=== PATIENT | female | born 1985 | race Caucasian/White ===

== ENCOUNTER → 2023-12-31 09:55 | Outpatient (BNVA) | payer MEDICAID, SELFPAY | PROVIDERS: Visit Provider Physician Assistant Surgical ==

== ENCOUNTER 2024-03-02 07:59 | Outpatient (AMB) | payer MEDICAID, SELFPAY ==
--- NOTE | 2024-03-02 14:16 | A.OFFVIS_ITS ---
VS Expanded 03/02/24 14:21 Height 5 ft 5 in Weight 263 lb BMI 43.8 Body Fat % 47.4 Body Fat Mass 124.6 Fat Free Mass 138.2 Visceral Fat Rating 14 Body Water % 37.7 Body Water Mass 99 Basal Metabolic Rate/Score 1,977 Intake Visit Reasons: [employer] SWL BMI 43.8 Allergies cat dander Adverse Reaction (Mild, Verified 03/02/24 14:16) Sneezing Medication List - Last Reconciled 03/02/24 by Forrest Luke MD No Known Home Meds HPI HPI [employer] SWL BMI 43.8: Details: Start time: 2pm, End time: 2.53pm ?I spent 48 minutes speaking with the patient on the phone plus an additional 5 minutes reviewing and updating records for a total of 53 minutes HPI Comments Details: Previous weight loss efforts: self diets Wakes up: 6am, Sleeps: 10pm Breakfast: 9am (fruit and sandwich) Lunch: 12pm (pasta, sandwich) Dinner: 5-6pm (rice, chicken, beans) Snacks: 4pm (chips or cookies), 8pm (crackers, cereal) Exercise: none Fluids: Coffee/tea: none, soda: regular Coke (2 cups per day), juice: 1/wk, ETOH: rarely PFSH Medical History (Updated 03/02/24 @ 14:17 by Forrest Luke MD) Morbid obesity Surgical History (Updated 12/31/23 @ 11:52 by Jerilyn Carrillo CMA) Hx of removal of cyst Family History (Updated 12/31/23 @ 10:33 by Jerilyn Carrillo CMA) Family/Other No problems noted. Social History (Updated 12/31/23 @ 10:32 by Jerilyn Carrillo CMA) Alcohol intake: current Alcohol intake frequency: holidays/special occasions only Alcohol type: beer Patient Tobacco Use Status: Never used Tobacco Telehealth Telehealth Telehealth Platform: Telephone Location of provider rendering services: practice address Location of patient: address on file Patient Identification confirmed using: Name, : Yes Telehealth method: voice only Patient verbally consented to treatment: Yes Patient verbally consented to billing insurance company: Yes Patient informed of any privacy concerns related to visit: Yes Minutes spent on Phone/Video with Pt.: 53 Assessment & Plan Assessment & Plan (1) Morbid obesity: Code(s): E66.01 - Morbid (severe) obesity due to excess calories Category: Medical Plan: 1.? Plan for lap sleeve gastrectomy. If diaphragmatic or ventral hernias are present at time of surgery, these will be repaired laparoscopically as well. Risks and complications include possible conversion to an open procedure, anastomotic leak, bleeding requiring transfusion, small bowel obstruction, , DVT and pulmonary embolism, cardiac, or pulmonary complications, as supervisor intermediates complications such as anastomotic ulcer, insufficient weight loss and vitamin deficiencies. I emphasized the importance of close follow-up, adherence to instructions and good communication. 2. Nutritional counseling. Start with 2 CELEBRATE REBUILD protein (buy at [facility] gift shop) shakes (ONE scoop EACH in 8oz low fat unsweetened almond milk each) at 7am-9am and 10am-12pm, 2 protein bars (CELEBRATE protein bars, buy at [facility] [employer] shop) at 1pm-3pm and 4pm-6pm, dinner at 7pm (10 forks of protein and 10 forks of salad/vegetables) AND HALF protein bar after dinner at 9pm-10pm. So you do 2 protein shakes, 2.5 protein bars and one meal per day. Meal to include lean meat (beef, fish, pork, turkey, chicken), or luxembourgish yogurt, or egg whites, or beans with a salad with olive oil and fruits (berries, pears, apples, kiwi). Avoid salt, breads, potatoes, rice, pasta, desserts. 3. Each shake would be drunk slowly, like coffee in a period of 2 hours. 4. Cut each bar in 4 pieces and eat each piece in 30min ?to make each bar last 2 hours. 5. I emphasized the importance of measuring accurately the food portion and measure it when serving the food in plate 6. The meal portions include 10 full-size forks of meat and 10 full-size forks of salad. You always eat the meat portion but you can replace up to 5 forks for salad/vegetables with rice, potatoes or pasta, or a fruit ?if you like. The less you do it the better weight loss will be. 7. One full-size fork is what it can be scooped on the fork without falling aside and not what can be bit with the fork. Use regular forks like those you find in a typical restaurant. 8.? Please buy the body composition scale we discussed and send me weight measurements as soon as possible and then once a week. Always include your diet and exercise plan. 9. Start walking outside daily, tracking calories with a goal of 300 calories per day, daily. Goal is to burn 2000 calories per week on exercise, which means either 300 calories daily, or 400 calories 5 days per week, or 500 calories 4 days per week, or 650 calories 3 days per week. 10. The best choice would be to purchase a stationary bike, elliptical or treadmill at home that can track calories. Let me know if you do so I can give you an exercise plan. 11.?It is important of avoiding and for at least 18 months postoperatively and has been discussed at the infosession. 12. Goal is to lose at least 1.5-2lbs per week 13. Goal to lose 10% of your weight before surgery, which is about 26lbs. Ultimate weight goal: 217lbs before surgery 14. Please follow the diet plan exactly without any change. If you don't like something about the plan or you feel hungry you need to communicate with me so I can help you revise the plan. You should not change the plan yourself. 15. To be scheduled for EGD due to the history of sleeve gastrectomy and anemia. The possibility of biopsies was discussed. Patient needs to avoid use of NSAIDs and aspirin for 1 week prior to EGD. You must be on liquids only the day before your endoscopy. Risks of perforation and bleeding was discussed with the patient. This will be an outpatient procedure with IV sedation. Orders: Orders Hemoglobin A1c Today E66.01 - Morbid (severe) obesity due to excess calories Complete Blood Count Auto Diff Today E66.01 - Morbid (severe) obesity due to excess calories Lipid Panel Today E66.01 - Morbid (severe) obesity due to excess calories IRON PROFILE Today E66.01 - Morbid (severe) obesity due to excess calories Comprehensive Met. Panel Today E66.01 - Morbid (severe) obesity due to excess calories Vitamin B12 and Folate Today E66.01 - Morbid (severe) obesity due to excess calories Zinc Today E66.01 - Morbid (severe) obesity due to excess calories Vitamin B1 Today E66.01 - Morbid (severe) obesity due to excess calories US abdomen comp w elastography Today E66.01 - Morbid (severe) obesity due to excess calories XR chest 2V Today E66.01 - Morbid (severe) obesity due to excess calories Insulin Today E66.01 - Morbid (severe) obesity due to excess calories H Pylori Breath Test Today E66.01 - Morbid (severe) obesity due to excess calories C Reactive Protein Today E66.01 - Morbid (severe) obesity due to excess calories Vitamin A Today E66.01 - Morbid (severe) obesity due to excess calories TSH reflex Free T4 Today E66.01 - Morbid (severe) obesity due to excess calories Ferritin Today E66.01 - Morbid (severe) obesity due to excess calories Vitamin D 25-OH Total Today E66.01 - Morbid (severe) obesity due to excess ca lories ECG 12 lead EKG Today E66.01 - Morbid (severe) obesity due to excess calories FL upper GI w air Today E66.01 - Morbid (severe) obesity due to excess calories Referrals Behavioral Health Referral E66.01 - Morbid (severe) obesity due to excess calories Nutrition/Dietitian Referral E66.01 - Morbid (severe) obesity due to excess calories
[2024-03-02 14:21] VITALS: BMI 43.8
== END 2024-03-02 14:53 | disposition home or self-care (01) ==
LOC: HO.HBS 07:59
PROVIDERS: PCP Internal Medicine; Visit Provider Surgery
DX: E66.01 Morbid (severe) obesity due to excess calories (principal); E66.813 Obesity, class 3; Z68.41 Body mass index [BMI] 40.0-44.9, adult
CPT/HCPCS: 99204

== ENCOUNTER 2024-10-24 10:33 | Emergency (ER) | payer MEDICAID, SELFPAY ==
[2024-10-24 10:40] VITALS: BP 148/90; PULSE 94; RESP 18; TEMP 36.6; O2SAT 98; BMI 45.4
--- OUTSIDE RECORDS SUMMARY | 2024-10-24 10:50 | XMS_ITS | Encounter Summary ---
Author Organization [employer] Address [address] [facility] [address] [facility] [address] [place] [address] Care Team Providers Care Jammer Hooker Name Role Phone Unavailable Primary Care Provider Unavailabl e Encounter Details Date Type Department Care Team (Latest Contact Info) Description 10/24/2024 Travel Social History Tobacco Use Types Packs/Day Years Used Date Smoking Tobacco: Never Passive Smoke Exposure: Never Smokeless Tobacco: Never Housing Stability Answer Date Recorded What is your housing situation today? I have julian catalna 05/12/[address] you li ve. Do you have problems with any of the following? None of the above 05/12/2024 Food Insecurity Answer Date Recorded Within the past 12 months, y ou worried that your food would run out before you got money to buy more: Never True 05/12/2024 Within the past 12 months,th e food you bought just didn't last and you didn't have enough money to get more: Never True 01/2025 Transportation Answer Date Recorded In the past 12 months, has l ack of transportation kept you from medical appts, meetings, work or from getting things needed for daily living? No 05/12/2024 Utilities Answer Date Recorded In the past 12 months, has t he electric, gas, oil or water company threatened to shut off services in your home? No 05/12/2024 Internet Access Answer Date Recorded Internet Access Q1 Yes 05/12/2024 Internet Access Q2 Not on file 05/12/2024 Comments Unknown Sex and Gender Information Value Date Recorded Sex Assigned at Female 03/29/2022 2:19 PM EST Legal Sex Female 2:15 PM EST Gender Identity Female 03/29/2022 2:19 PM EST Sexual Orientation Don't know 03/29/2022 2: 19 PM EST documented as of this encounter Plan of Treatment Upcoming Encounters Date Type Department Care Team (Late st Contact Info) Description 11/09/2024 11:30 AM EDT Clinical Support [facility] MEDICINE [address] [place] [id number] documented as of this encounter Visit Diagnoses Not on filedocumented in this encounter
--- NOTE | 2024-10-24 11:01 | ED_ITS ---
HPI - Female Genitourinary General Chief complaint: Urogenital-Female Stated complaint: bloodwork Time Seen by Provider: 10/24/24 10:48 Source: patient Mode of arrival: ambulatory Limitations: no limitations History of Present Illness ED Provider: Dr. Enrique Rhodes HPI Narrative: 39-year-old female past medical history of -1 miscarriage bilateral tubal ligation, asthma who presents emergency department for evaluation of late menstrual period, lower abdominal cramping and back pain, faintly positive home test. Patient's last menstrual period was 09/20/2024 (possibly 4 weeks 6 days ). She states she did 2 home pregnancies tests on 10/23 and 10/24 and had a faintly positive test. Patient was seen at [facility] had a negative test. Patient states she is having lower abdominal cramping radiating to her back which is consistent with her usual menstrual cramps. She had did note urinary frequency but no dysuria. She has had no vaginal bleeding. Related Data Home Medications ?Medication ?Instructions ?Recorded ?Confirmed No Known Home Meds 12/31/23 03/02/24 Allergies Allergy/AdvReac Type Severity Reaction Status Date / Time cat dander AdvReac Mild Sneezing Verified 10/24/24 10:42 Review of Systems 2 Review of Systems: Yes all other systems are reviewed and are negative PMFSH Past Medical History Medical History (Updated 10/24/24 @ 12:07 by Enrique Rhodes MD) Morbid obesity Surgical History (Updated 12/31/23 @ 11:52 by Jerilyn Carrillo CMA) Hx of removal of cyst Family History Family History (Updated 12/31/23 @ 10:33 by Jerilyn Carrillo CMA) Family/Other No problems noted. Social History Social History (Updated 12/31/23 @ 10:32 by Jerilyn Carrillo CMA) Alcohol intake: current Alcohol intake frequency: holidays/special occasions only Alcohol type: beer Patient Tobacco Use Status: Never used Tobacco Advance Directives: No Advance Directives Information Provided: No Physical Exam 2 Vital Signs: Vital Signs: Last Vital Signs Temp 97.9 F 10/24/24 10:40 Pulse 94 10/24/24 10:40 Resp 18 10/24/24 10:40 BP 148/90 H 10/24/24 10:40 Pulse Ox 98 07/26/25 10:40 O2 Del Method Room Air 10/24/24 10:40 BMI result Body Mass Index 45.4 Vital signs revealed an elevated blood pressure of 148/90 otherwise unremarkable Exam: General: Awake, alert in no distress Head: Normocephalic, atraumatic EENT: PERRL, Lids normal, sclera normal, conjunctiva normal, nose normal , ears normal, throat without erythema or exudates Neck: Supple, no adenopathy Lung: breath sounds symmetric, no wheezing, rales or rhonchi Chest: symmetric movement, nontender Heart: regular rate and rhythm, normal S1, S2 no murmurs or rubs Abdomen: soft, non-tender, nondistended, normal bowel sounds Back: no vertebral tenderness, no CVAT Extremities: no deformities, moves all extremities symmetrically Neuro: Awake, alert, oriented, normal speech, cranial nerves intact, moves all extremities symmetrically Psych: Pleasant, cooperative Medical Decision Making Medical Decision Making MDM Narrative: 39-year-old female past medical history of -1 miscarriage bilateral tubal ligation, asthma who presents emergency department for evaluation of late menstrual period, lower abdominal cramping and back pain, faintly positive home test. Patient's last menstrual period was 09/20/2024 (possibly 4 weeks 6 days ). She states she did 2 home pregnancies tests on 10/23 and 10/24 and had a faintly positive test. Patient was seen at [facility] had a negative test. Patient states she is having lower abdominal cramping radiating to her back which is consistent with her usual menstrual cramps. She had did note urinary frequency but no dysuria. She has had no vaginal bleeding. Vital signs revealed an elevated blood pressure otherwise unremarkable. Physical examination was normal Differential diagnosis: ?Includes but is not limited to , ectopic , false positive , anemia, electrolyte abnormalities, urinary tract infection Course: 12:09 My independent interpretation patient's laboratory evaluation is as follows: CBC was normal. CMP was normal. Blood type B positive. Quantitative beta-hCG was below detectable limits. I did discuss the negative test with the patient, this confirms that she is not she does not have an ectopic . I told her that is some women can sometimes have a small amount of beta-hCG in the blood in his can lead to faintly positive tests. I told her that she may have false positive home tests in the future if she thinks she is she should follow up with her PCP for a serum quantitative beta-hCG or return to the emergency department for evaluation. Admission/Observation Consideration of admission/observation: Escalation of care including admission/observation considered (Yes) Lab Data MDM Lab Attestation statement: I reviewed the patient's lab results. 10/24/24 11:13 10/24/24 11:13 Labs: Lab Results 10/24/24 10/24/24 Range/Units 11:13 11:35 WBC 10.7 (4.8-10.8) X10*3/uL RBC 5.00 (4.20-5.50) X10*6/uL Hgb 14.2 (12.0-16.0) g/dl Hct 42.2 (37.0-47.0) % MCV 84.4 (80.0-98.0) fL MCH 28.4 (27.0-33.0) pg MCHC 33.6 (31.0-35.0) g/dl RDW 13.3 (11.0-16.0) % Plt Count 386 (160-400) X10*3/uL MPV 8.5 L (9.4-12.3) fL Immature Gran % (Auto) 0.2 (0.0-0.4) % Neut % (Auto) 60.4 (45-73) % Lymph % (Auto) 31.1 (20-40) % [place] % (Auto) 5.6 (2-11) % Eos % (Auto) 1.9 (0-4) % Baso % (Auto) 0.8 (0-2) % Lymph # (Auto) 3.3 (1.2-4.9) X10*3/uL [place] # (Auto) 0.6 (0.1-1.2) X10*3/uL Eos # (Auto) 0.2 (0.0-0.4) X10*3/uL Baso # (Auto) 0.1 (0.0-0.2) X10*3/uL Abs Immat Gran (auto) 0.02 (0.00-0.03) X10*3/uL Absolute Neuts (auto) 6.4 (2.0-8.3) x10*3/uL Absolute Nucleated RBC 0.000 (0.0-0.012) X10*3/uL Nucleated RBC % (auto) 0.0 (0.0-0.2) /100WBC Sodium 141 (135-145) mmol/L Potassium 4.0 (3.3-5.1) mmol/L Chloride 107 (96-108) mmol/L Carbon Dioxide 26 (22-29) mmol/L Anion Gap 12 (12-20) BUN 14 (9-16) mg/dL Creatinine 0.79 (0.5-1.4) mg/dL Estim Creat Clear Calc 127.5 Estimated GFR > 60 Random Glucose 98 (60-115) mg/dL Calcium 9.0 (8.4-10.2) mg/dL Total Bilirubin 0.4 (0.0-1.0) mg/dL AST 24 (5-31) U/L ALT 34 H (0-31) U/L Alkaline Phosphatase 72 (39-117) U/L Total Protein 8.1 H (6.5-8.0) g/dL Albumin 4.5 (3.5-5.0) g/dL Beta HCG, Quant < 2 mIU/mL Urine Color Yellow Urine Appearance Clear Urine pH 6.0 (5.0-9.0) Ur Specific [place] >= 1.030 H (1.005-1.025) Urine Protein Trace (Neg-Trace) mg/dL Urine Glucose (UA) Negative (Negative) mg/dL Urine Ketones Negative (Negative) mg/dL Urine Blood Negative (Negative) Urine Nitrite Negative (Negative) Ur Leukocyte Esterase Small (1+) H (Negative) Urine RBC 0-2 (0-2) /HPF Urine WBC 0-5 (0-5) /HPF Ur Squamous Epith Cells 6-10 (0-2) /HPF Urine Bacteria 1+ (None Seen) Hyaline Casts 0-2 (0-2) /LPF Blood Type B Positive Chronic Conditions Patient?s care impacted by: Other (Asthma) Discharge Plan Discharge Clinical Impression: test negative, Menstrual cramp Patient Disposition: Home, Self-Care Additional Instructions: Your quantitative beta-hCG (blood test) was negative. This has a very sensitive test in confirms that you are not . Sometimes women can have a low amount of beta-hCG in your blood and this can lead to faintly positive tests and this may explain why your test was faintly positive but at this time you are not based your test here in the emergency department. Your cramping and back pain is consistent with the your menses. Sometimes when your menstrual period is delayed you can have a more severe with more bleeding and more cramping. Take ibuprofen 200 mg pills, 2 pills every 6 hours as needed for pain or fever. Take Tylenol (acetaminophen) 500 mg pills, 2 pills every 6 hours as needed for pain or fever. Follow-up with your doctor in 2 days. Please return to the emergency department if your symptoms get worse or if you develop any symptoms that are concerning to you. Prescriptions: No Action No Known Home Meds Print Language: Kuwaiti
[2024-10-24 11:19] LABS: MANUAL DIFF FLAG NO
[2024-10-24 11:32] LABS: Hematocrit 42.2 % (37.0-47.0); Hemoglobin 14.2 g/dl (12.0-16.0); Imm Gran Abs Auto 0.02 X10*3/uL (0.00-0.03); Imm Gran Pct Auto 0.2 % (0.0-0.4); Lymphocytes Absolute Auto 3.3 X10*3/uL (1.2-4.9); Mean Corpuscular HGB Conc 33.6 g/dl (31.0-35.0); Mean Corpuscular Hemoglobin 28.4 pg (27.0-33.0); Mean Corpuscular Volume 84.4 fL (80.0-98.0); NRBC Abs Auto 0.000 X10*3/uL (0.0-0.012); NRBC Pct Auto 0.0 /100WBC (0.0-0.2); Platelet Count 386 X10*3/uL (160-400); Red Blood Count 5.00 X10*6/uL (4.20-5.50); White Blood Count 10.7 X10*3/uL (4.8-10.8)
[2024-10-24 11:41] LABS: Alanine Aminotransferase 34 U/L (0-31); Albumin Level 4.5 g/dL (3.5-5.0); Alkaline Phosphatase 72 U/L (39-117); Anion Gap 12 (12-20); Aspartate Amino Transferase 24 U/L (5-31); Blood Urea Nitrogen 14 mg/dL (9-16); Calcium 9.0 mg/dL (8.4-10.2); Carbon Dioxide 26 mmol/L (22-29); Chloride 107 mmol/L (96-108); Creatinine Clr Calc Pharmacy 127.5; Estimated Glomerular Filt Rate > 60; Potassium 4.0 mmol/L (3.3-5.1); Sodium 141 mmol/L (135-145); Total Protein 8.1 g/dL (6.5-8.0)
[2024-10-24 11:42] LABS: Appearance Urine Clear; Glucose Urine UA Negative (Negative); PH 6.0 (5.0-9.0); Specific Gravity - Urine >= 1.030 (1.005-1.025); UMIC TRIGGER UACC YES
[2024-10-24 11:52] LABS: UACC Culture Trigger YES
[2024-10-24 12:05] VITALS: BP 121/69; PULSE 89; RESP 16; TEMP 36.8; O2SAT 97
[2024-10-24 12:14] VITALS: BP 121/69; PULSE 89; RESP 16; TEMP 36.8; O2SAT 97
== END 2024-10-24 12:15 | disposition home or self-care (01) ==
PROVIDERS: Emergency Provider Emergency Medicine Emergency Medical Services
DX: R10.30 Lower abdominal pain, unspecified (principal); Z32.02 Encounter for pregnancy test, result negative; E66.01 Morbid (severe) obesity due to excess calories; Z68.42 Body mass index [BMI] 45.0-49.9, adult
CPT/HCPCS: 36415; 80053; 81001; 84702; 85025; 86900; 86901; 87086; 99283

== ENCOUNTER 2025-02-01 08:15 | Outpatient (REF) | payer MEDICAID, SELFPAY ==
--- NOTE | ~2025-02-01 | FL_ITS ---
EXAMINATION: XR FLUOROSCOPY UPPER GI SERIES CLINICAL INFORMATION: Marked obesity due to excess calories. Bariatric program. Patient has no symptomatic complaints. COMPARISON: None TECHNIQUE: Fluoroscopic air contrast upper GI examination was performed utilizing standard techniques with thin and thick barium and effervescent granules. Numerous spot images were obtained. Several fluoroscopic image hold cine sequences were also obtained. FINDINGS: UPPER GI SERIES: Lateral cine images of the oropharynx and hypopharynx demonstrate normal swallow mechanism with normal epiglottic inversion and soft palate elevation. No laryngeal penetration, glottic or subglottic aspiration identified. Hypopharyngeal structures appear normal without evidence of mass or diverticulum. There was no significant cricopharyngeal achalasia. Dual and single contrast images of the esophagus demonstrate normal caliber, contour, and mucosal pattern. No evidence of stricture, mass, or ulcerations identified. Esophageal peristalsis was normal. No evidence of hiatus hernia identified. No significant gastroesophageal reflux was seen during the course of the examination. Dual contrast and single contrast images of the stomach demonstrated normal contour and mucosal pattern without evidence of mass, ulceration, or other abnormality. Normal rugal fold pattern. Contrast freely passed into the gastric antrum and duodenal bulb without delay. Single and air-contrast images of the duodenal bulb demonstrate no abnormality. The duodenal sweep has a normal appearance, course, and mucosal fold appearance. FLUOROSCOPY TIME: 2 minutes, 47 seconds Number of Spot Images:11 Number of cines obtained: 9 DOSE AREA PRODUCT: [id number] uGy-m2 (microgray-meter squared) FL/FL upper GI w air IMPRESSION: 1. Normal upper GI examination. Electronically signed by: Isra Villasenor MD 02/01/2025 09:33 AM [facility]
--- NOTE | ~2025-02-01 | XR_ITS ---
EXAMINATION: XR CHEST CLINICAL INFORMATION: E66.01 - Morbid (severe) obesity due to excess calories COMPARISON: None available. TECHNIQUE: PA and lateral views. FINDINGS: No consolidation, pleural effusion or pneumothorax. Cardiomediastinal silhouette size is normal. A shaped curvature of the mid thoracic spine. Multilevel thoracolumbar spondylosis. Patient's large body habitus/obesity. Upper extremities overlapping the upper thorax and the lateral projection XR/XR chest 2V IMPRESSION: No acute airspace disease. Multilevel spondylosis. Electronically signed by: Oscar Little MD 02/01/2025 08:47 AM [facility]
--- OUTSIDE RECORDS SUMMARY | 2025-02-01 08:28 | XMS_ITS | Encounter Summary ---
Author Organization [employer] Address [address] [place] [address] 7 [place] [address] Care Team Providers Care Vascular Physician Name Role Phone Natalie Nolasco MD Primary Care Provider + Reason for Visit * Reason Comments Med Refill Encounter Details Date Type Department Care Team (Late st Contact Info) Description 01/15/[address] [facility] [address] [place] [address] Lilian Hoskins NP [address] [place] [address] Social History Tobacco Use Types [...] Description 03/04/2025 9:45 AM EST Office Visit [facility] [address] [place] [address] Natalie Nolasco MD [address] [place], [place] [phone] documented as of this encounter Visit Diagnoses Not on filedocumented in this encounter Care Teams Vascular Physician Relationship Specialty Start Date End Date Natalie Nolasco MD [address] [place] [id number] PCP - General Internal Medicine 10/30/24 documented as of this encounter
--- OUTSIDE RECORDS SUMMARY | 2025-02-01 08:28 | XMS_ITS | Clinical Summary ---
Author Organization [employer] Address [address] [facility] [address] [place] [address] Care Team Providers Care Manager Spring Name Role Phone Natalie Nolasco MD Primary [...] to the ED, discussed case with [place] african history professor at [facility] and they will be waiting for [...] Description 03/04/2025 9:45 AM EST Office Visit [facility] MED[facility]INE [address] [place] [address] Natalie Nolasco MD [address] [place] [address] Health Maintenance Due Date Last Done Comments [...] patient's age to complete this topic [place] [address] [place] [id number] C3 Care Teams Manager Spring Relationship Specialty Start Date End Date Natalie Nolasco MD [address] [place] [id number] PCP - General Internal Medicine 10/30/24
[2025-02-01 08:33] LABS: MANUAL DIFF FLAG NO
[2025-02-01 09:03] LABS: Hematocrit 41.2 % (37.0-47.0); Hemoglobin 13.2 g/dl (12.0-16.0); Imm Gran Abs Auto 0.02 X10*3/uL (0.00-0.03); Imm Gran Pct Auto 0.2 % (0.0-0.4); Lymphocytes Absolute Auto 2.7 X10*3/uL (1.2-4.9); Mean Corpuscular HGB Conc 32.0 g/dl (31.0-35.0); Mean Corpuscular Hemoglobin 27.9 pg (27.0-33.0); Mean Corpuscular Volume 87.1 fL (80.0-98.0); NRBC Abs Auto 0.000 X10*3/uL (0.0-0.012); NRBC Pct Auto 0.0 /100WBC (0.0-0.2); Platelet Count 413 X10*3/uL (160-400); Red Blood Count 4.73 X10*6/uL (4.20-5.50); White Blood Count 8.8 X10*3/uL (4.8-10.8)
[2025-02-01 09:54] LABS: Alanine Aminotransferase 26 U/L (0-31); Albumin Level 4.3 g/dL (3.5-5.0); Alkaline Phosphatase 75 U/L (39-117); Anion Gap 11 (12-20); Aspartate Amino Transferase 21 U/L (5-31); Blood Urea Nitrogen 13 mg/dL (9-16); Calcium 8.7 mg/dL (8.4-10.2); Carbon Dioxide 26 mmol/L (22-29); Chloride 107 mmol/L (96-108); Cholesterol 196 mg/dL (<200); Estimated Glomerular Filt Rate > 60; HDL Cholesterol 63 mg/dL (>40); Iron 72 mcg/dL (30-160); Percent Iron Saturation 20 % (15-50); Potassium 4.3 mmol/L (3.3-5.1); Sodium 140 mmol/L (135-145); Total Iron Binding Capacity 363 mcg/dL (228-428); Total Protein 7.7 g/dL (6.5-8.0); Triglycerides 135 mg/dL (<150); Unsaturated Iron Binding 291 ug/dL
[2025-02-01 09:57] LABS: Ferritin 29 ng/mL (10-122)
[2025-02-01 10:14] LABS: Folate 10.5 ng/mL (> or = 4.0); Vitamin B12 568 pg/mL (200-900)
== END 2025-02-01 08:16 | disposition home or self-care (01) ==
LOC: HO.XRAY 08:15
PROVIDERS: Visit Provider Surgery
DX: E66.01 Morbid (severe) obesity due to excess calories (principal)
CPT/HCPCS: 36415; 71046; 74246; 80053; 80061; 82306; 82607; 82728; 82746; 83036; 83525; 83540; 84425; 84443; 84590; 84630; 85025; 86140

== ENCOUNTER → 2025-02-01 08:20 | Outpatient (BNV) | payer MEDICAID, SELFPAY | PROVIDERS: Visit Provider Radiology Diagnostic Radiology | DX: E66.01 Morbid (severe) obesity due to excess calories (principal) | CPT/HCPCS: 71046; 74246 ==

== ENCOUNTER 2025-02-18 06:09 | Day surgery (SDC) | payer MEDICAID, SELFPAY ==
--- OUTSIDE RECORDS SUMMARY | 2025-01-28 14:22 | XMS_ITS | Clinical Summary ---
Author Organization [employer] Address [address] [facility] [address] [place] [address] Care Team Providers Care Group Teacher Name Role Phone Natalie Nolasco MD Primary Care Provider + Allergies No known active allergies Medications Blood Pressure Monitoring (Blood Pressure Cuff) misc Use daily as prescribed 1 each Active Active Problems Problem Noted Date Diagnosed Date Pelvic pain 10/24/2024 Assessment & Plan (10/24/2024 11:22 AM EDT): Patient has mild peritoneal s/s on exam and given questionable test at home and potential for ectopic , I am sending her to the ED, discussed case with [place] end worker at [facility] ED and they will be waiting for her. Elevated blood pressure reading 10/24/2024 Assessment & Plan (10/24/2024 11:27 AM EDT): History of -induced hypertension 8 years ago only, no hypertension after that. High BP could be related to pain, unclear if it is essential hypertension. Patient will be seen today in the ED for evaluation of acute pelvic pain as above She will check BP at home daily and follow-up with RN in 3 weeks, continue with a low sodium diet and regular exercise as tolerated. For BP < or = to 139/89 she can follow up with new PCP in 1mo For BP > or = to 140/90 start Amlodipine 2.5 mg once a day and Follow up with the Nurse for a second blood pressure check in 4 weeks if no PCP appt is available. She should see PCP within at least 2mo form now. Severe obesity (CMS/HCC) 05/14/2024 Encounters Date Type Department Care Team Description 01/05/2025 Travel from Last 3 Months Social History Tobacco Use Types Packs/Day Years Used Date Smoking Tobacco: Never Passive Smoke Exposure: Never Smokeless Tobacco: Never Tobacco Cessation:Counseling Given: Not Answered Housing Stability Answer Date Recorded What is your housing situation today? I have julian catalan 05/12/[address] you li [...] Don't know 03/29/2022 2: 19 PM EST Last Filed Vital Signs Vital Sign Reading Time Taken Comments Blood Pressure 140/105 10/24/2024 10:12 AM EDT Pulse 105 10/24/2024 9:41 AM EDT Temperature 36.3 C (97.3 F) 10/24/2024 9:41 AM EDT Respiratory Rate 20 10/24/2024 9:41 AM EDT Oxygen Saturation 99% 10/24/2024 9:41 AM EDT Inhaled Oxygen Concentration - - Weight 124 kg (273 lb 3.2 oz) 10/24/2024 9:41 AM EDT Height 165.1 cm (5' 5 ) 10/24/2024 9:41 AM EDT Body Mass Index 45.46 10/24/2024 9:41 AM EDT Plan of Treatment Upcoming Encounters Date Type Department Care Team (Late st Contact Info) Description 03/04/2025 9:45 AM EST Office Visit [facility] MEDICINE [address] [place] [address] Natalie Nolasco MD [address] [place] [address] Health Maintenance Due Date Last Done Comments Depression Screening 1986 HIV Screening 1986 Lipid Panel 1986 Alcohol/Substance Use Screening 1998 Family Planning (PISQ) 2001 HPV Vaccines (1 - 3-dose series) 2001 Hepatitis C Screening 2004 DTaP/Tdap/Td Vaccines (1 - Tdap) 2005 Hepatitis B Vaccines (1 of 3 - 19+ 3-dose series) 2005 Pap Smear 2007 Cervical Cancer Screening 2016 HPV/Cotest 2016 COVID-19 Vaccine (1 - 2023-2 5 season) 2024 Influenza Vaccine (#1) 2024 SDOH Screening 05/12/2025 05/12/2024 Tobacco Screening 10/24/2025 10/24/2024 Disability Screening 01/05/2026 01/05/2025 Zoster Vaccines (1 of 2) 2036 RSV Patients and Pa tients Aged 60 years or older (1 - 1-dose 75+ series) 2061 HIB Vaccines Aged Out No longer eligi ble based on patient's age to complete this topic Hepatitis A Vaccines Aged Out No long er eligible based on patient's age to complete this topic IPV Vaccines Aged Out No longer eligi ble based on patient's age to complete this topic Meningococcal B Vaccine Aged Out No l onger eligible based on patient's age to complete this topic Meningococcal Vaccine Aged Out No chrissy courtney eligible based on patient's age to complete this topic Pneumococcal Vaccine: Pediat rics (0 to 5 Years) and At-Risk Patients (6 to 49) Years Aged Out No longer eligi ble based on patient's age to complete this topic RSV under 20 months Aged Out No longe r eligible based on patient's age to complete this topic Rotavirus Vaccines Aged Out No longer eligible based on patient's age to complete this topic [place] [address] [place] [address] C3 Care Teams Group Teacher Relationship Specialty Start Date End Date Natalie Nolasco MD [address] [place] [id number] PCP - General Internal Medicine 10/30/24
--- OUTSIDE RECORDS SUMMARY | 2025-01-28 14:22 | XMS_ITS | Encounter Summary ---
Author Organization [employer] Address [address] [place] [address] [address] [place] [address] Care Team Providers Care Circus Rider Name Role Phone Natalie Nolasco MD Primary Care Provider + Reason for Visit * Reason Comments Med Refill Encounter Details Date Type Department Care Team (Late st Contact Info) Description 01/15/2024 Refill [facility] [address] [place] [address] Lilian Hoskins NP [address] [place] [address] Social History Tobacco Use Types Packs/Day Years Used Date Smoking Tobacco: Never Assessed Comments Unknown Sex and Gender Information Value Date Recorded Sex Assigned at Female 03/29/2022 2:19 PM EST Legal Sex Female 2:15 PM EST Gender Identity Female 03/29/2022 2:19 PM EST Sexual Orientation Don't know 03/29/2022 2: 19 PM EST documented as of this encounter Miscellaneous Notes * Telephone Encounter - Zaid Deng - 01/16/2024 4:57 PM EDT documented in this encounter Plan of Treatment Upcoming Encounters Date Type Department Care Team (Late st Contact Info) Description 03/04/2025 9:45 AM EST Office Visit [facility] MEDICINE [address] [place] [address] Natalie Nolasco MD [address] [place], [place] [phone] documented as of this encounter Visit Diagnoses Not on filedocumented in this encounter Care Teams Circus Rider Relationship Specialty Start Date End Date Natalie Nolasco MD [address] [place] [id number] PCP - General Internal Medicine 10/30/24 documented as of this encounter
--- NOTE | 2025-02-15 12:16 | HO.ANESPROP2 ---
Documented by User: Lana Montoya NP 02/15/25 12:16 HPI - Anesthesia Eval Consult details Narrative: 39yo F for Upper Endoscopy BMI 43 PMFSH Active Problems Active Problems: All Active Problems Morbid obesity (Acute) Past Medical History Medical History Vitamin D deficiency Morbid obesity Family History Family History Family/Other No problems noted. Mother Asthma Hypertension Arthritis Pre-diabetes Father Asthma Hypertension Daughter Obesity Hypertension Daughter No problems noted. Daughter No problems noted. Daughter No problems noted. Daughter No problems noted. Son Allergies Asthma Surgical History Surgical History Hx of tubal ligation Hx of removal of cyst Social History Social History Alcohol intake: former Patient Tobacco Use Status: Never used Tobacco Use of substances other than those prescribed or required for medical reasons: No Advance Directives: No Advance Directives Information Provided: Yes Meds Allergies Allergy/AdvReac Type Severity Reaction Status Date / Time cat dander AdvReac Mild Sneezing Verified 01/05/25 11:28 Assessment and Plan Assessment Anesthesia Assessment: Chart Reviewed Documented by User: Katerina Stuart MD 02/18/25 07:59 PMFSH Past Medical History Medical History Vitamin D deficiency Morbid obesity Family History Family History Family/Other No problems noted. Mother Asthma Hypertension Arthritis Pre-diabetes Father Asthma Hypertension Daughter Obesity Hypertension Daughter No problems noted. Daughter No problems noted. Daughter No problems noted. Daughter No problems noted. Son Allergies Asthma Surgical History Surgical History Hx of tubal ligation Hx of removal of cyst History of Problems with Anesthesia: No Social History Social History Alcohol intake: former Patient Tobacco Use Status: Never used Tobacco Use of substances other than those prescribed or required for medical reasons: No Advance Directives: No Advance Directives Information Provided: Yes Meds Allergies Allergy/AdvReac Type Severity Reaction Status Date / Time cat dander AdvReac Mild Sneezing Verified 01/05/25 11:28 Exam Airway Mallampati Class: III TM Dist: >3cm Neck ROM: Full Loose/Missing/Broken Teeth: No Heart: RRR Lungs: CTA Assessment and Plan Assessment Anesthesia Assessment: Anesthesia Plan Discussed Final Anesthetic Review History of Problems with Anesthesia: No NPO: Yes ASA Class: III Final Preanesthetic Review: Meds/Allgs Chart Reviewed, Consent Obtained/Reviewed and Anes Risks/Benef Reviewed Patient Risk: Intermediate Procedure Risk: Intermediate Anesthetic Plan Anesthetic Plan: MAC: Disposition: Standard PACU
[2025-02-18 06:27] VITALS: BMI 46.3
[2025-02-18 06:41] VITALS: BP 137/86; PULSE 102; RESP 16; TEMP 36.6; O2SAT 97
[2025-02-18] MEDS: Lactated Ringers 1,000 ML 80 ML IVCONT (06:41)
--- NOTE | 2025-02-18 07:57 | P.BOP_ITS ---
Brief Operative Note Date of Service: 02/18/25 Pre-op diagnosis: Morbid obesity Post-op diagnosis: same Procedure: PROCEDURE DATE: 02/18/2025 PREOPERATIVE DIAGNOSIS: Morbid obesity POSTOPERATIVE DIAGNOSIS: ?Same as above. Moderate size diaphragmatic hernia PROCEDURE: Gszdnxul-kihtrp-zegerfavpdse with biopsies Surgeon: ?Dwayne Luke M.D.. Ph.D. [employer] Supervisor: None ? Anesthesia: IV sedation Estimated blood loss: ?Minimal FINDINGS AND PROCEDURE: ? OPERATIVE INDICATIONS: ?The patient is a 39 year old female known to me who is interested in bariatric surgery. Based on this information I recommended an upper endoscopy to evaluate the patient's symptoms. Risks and complications of the surgery were discussed with the patient in advance particularly the possibility of perforation or bleeding that may require surgical intervention. The patient understood the risks and was in agreement with the plan. ? PROCEDURE: After informed consent was obtained by the patient, the patient was ?transferred to the Operating Room and was placed in the supine position.? After successful induction of IV sedation, a mouth block was inserted and the patient was placed in the left lateral decubitus position. An upper endoscopy was performed next, the oropharynx and esophagus appeared within the normal limits. There was a moderate size 4cm fixed hiatal hernia. The z-line was smooth. Two biopsies were obtained from the distal esophagus 2-3 cm proximal to the GE junction and two additional biopsies from the GE junction. The stomach was entered and it appeared to be of normal size. There was no gastritis. There was no stricture or ulcer. A biopsy was obtained from the gastric fundus and the antrum. No significant bleeding was noted from any of the biopsy sites. Retroflexion of the scope confirmed the presence of a fixed diaphragmatic hernia. The scope was then advanced into the duodenum all the way to the 4th portion which appeared to be normal as well. At that point the duodenum ?and the stomach were decompressed and the scope was withdrawn from the patient's mouth. The patient extubated and was transferred in stable condition to the Recovery Room for further care. I was present and performed all steps of the procedure. There were no residents to assist with this case. Dwayne Luke M.D., Ph.D. Surgeon: Forrest Luke MD Anesthesia: MAC Was an [employer] Supervisor used for this Procedure?: No Estimated blood loss (mL): 0 IV fluids (mL): 400 Urine output (mL): 0 (No Rm to record output) Pathology: other (1) antrum x1, 2) fundus x1, 3) GE junction x2, 4) distal esophagus x2) Condition: stable Disposition: PACU
--- NOTE | 2025-02-18 07:57 | MHC.SHP ---
Pre-Procedural Eval Section A - 24 Hr Update-Section A only Date of Service: 02/18/25 The patient is an INPATIENT: No The patient has been examined within 24 hours of the surgical procedure. The History & Physical has been completed within 30 days and I have reviewed it.: Yes Section B - Complete if H&P > 30 days Chief Complaint: Morbid (severe) obesity due to excess calories Relevant Family History (Specify if Yes): No Relevant Social History: None Present Medications: None Medical History: No relevant PMH History of Previous Operations: No relevant previous surgery Allergies: Allergies Allergy/AdvReac Type Severity Reaction Status Date / Time cat dander AdvReac Mild Sneezing Verified 01/05/25 11:28 Review of Systems Sugical H&P ROS: Negative: Constitution, Cardiovascular, Respiratory, Neurological, Psychiatric, Hem-Onc, Allergic/Immunologic, Gastrointestinal, Genitourinary, Musculoskeletal, Integumentary, Endocrine and Eyes/Ears/Nose/Throat Exam Surgical H&P Exam: Normal: HEENT, Normal: Heart, Normal: Lungs, Normal: Extremities, Normal: Abdomen, Normal: Skin and Normal: Neurological Plan Diagnosis/Plan: Unchanged (EGD to assess the stomach's anatomy. Risks of bleeding and perforation were discussed with the patient and she is in agreement with the plan.) I have reviewed the history and physical and performed a pertinent physical examination on my patient. No changes have occurred unless specified. Time Spent With Patient Time: Total time managing care of this patient today ____ minutes.
[2025-02-18 08:20] VITALS: BP 115/64; PULSE 92; RESP 18; TEMP 36.3; O2SAT 99
[2025-02-18 08:35] VITALS: BP 121/84; PULSE 93; RESP 15; O2SAT 97
[2025-02-18 08:50] VITALS: BP 119/76; PULSE 91; RESP 15; TEMP 36.3; O2SAT 95
== END 2025-02-18 09:28 | disposition home or self-care (01) ==
PROVIDERS: Visit Provider Surgery
PROC: 0DJ08ZZ Inspection of Upper Intestinal Tract, Via Natural or Artificial Opening Endoscopic (ICD-10-PCS; CPT 43235; principal; 2025-02-18 08:00)
DX: E66.01 Morbid (severe) obesity due to excess calories (principal); Z68.41 Body mass index [BMI] 40.0-44.9, adult; K44.9 Diaphragmatic hernia without obstruction or gangrene; K20.80 Other esophagitis without bleeding; E55.9 Vitamin D deficiency, unspecified; Z98.51 Tubal ligation status
CPT/HCPCS: 43239; 88305; 88313; 88342; J2003; J2250; J2704

== ENCOUNTER → 2025-02-18 06:09 | Outpatient (BNV) | payer MEDICAID, SELFPAY | PROVIDERS: Visit Provider Surgery | DX: E66.01 Morbid (severe) obesity due to excess calories (principal); Z68.41 Body mass index [BMI] 40.0-44.9, adult; K44.9 Diaphragmatic hernia without obstruction or gangrene | CPT/HCPCS: 43239 ==

== ENCOUNTER 2025-03-04 11:01 | Outpatient (REF) | payer MEDICAID, SELFPAY ==
[2025-03-04 14:28] LABS: Cholesterol 224 mg/dL (<200); HDL Cholesterol 69 mg/dL (>40); Triglycerides 99 mg/dL (<150)
[2025-03-04 14:34] LABS: Reflex LDLD? No
[2025-03-05 05:29] LABS: HBS Num1 0.00 mIU/mL (0-7.99); HBc Num1 0.09 S/CO (0.00-0.79); HBsAGNum1 0.55 S/CO (0.00-0.99); HIV Num 1 0.07 S/CO (0.00-0.99); Hepatitis A Antibody IgM 0.20 Index (0-0.79); Hepatitis B Surface Antigen Negative (Negative); ~HepC Num1 0.23 S/CO (0.00-0.79); ~Hepatitis A Antibody IgM Nonreactive (Nonreactive); ~Hepatitis B Surface Antibody NONREACTIVE (Nonreactive); ~Hepatitis C Antibody Nonreactive (Nonreactive)
[2025-03-05 05:58] LABS: Syphilis Screen Nonreactive (Nonreactive)
[2025-03-06 21:48] LABS: TS Negative Control Passed; TS Panel A 1; TS Panel B 0; TS Positive Control Passed; TSpotTB Negative (Negative)
== END 2025-03-04 11:02 | disposition home or self-care (01) ==
LOC: HO.HHCL 11:01
PROVIDERS: PCP Internal Medicine; Visit Provider Internal Medicine
DX: Z11.4 Encounter for screening for human immunodeficiency virus [HIV] (principal); Z11.3 Encounter for screening for infections with a predominantly sexual mode of transmission; Z11.1 Encounter for screening for respiratory tuberculosis; Z11.59 Encounter for screening for other viral diseases; R03.0 Elevated blood-pressure reading, without diagnosis of hypertension
CPT/HCPCS: 36415; 80061; 84443; 86481; 86704; 86706; 86709; 86780; 86803; 87340; 87389